=== PATIENT | male | born 1990 | race American Indian/Alaskan Native ===

== ENCOUNTER 2016-10-22 21:59 | Emergency (ER) | payer SELFPAY ==
[~2016-10-22] VITALS: Ht 177.8 cm; Wt 72.5 kg
[2016-10-22 22:01] VITALS: Ht 177.8 cm; Wt 72.5 kg
[2016-10-22] MEDS ORDERED: ACETAMINOPHEN 500 MG TAB PO STA (22:18)
--- NOTE | 2016-10-22 22:18 | ERD ---
ER Documentation Chief Complaint Date/Time DATE: 10/22/16 TIME: 22:16 Chief Complaint headache x 3 days HPI 26-year-old male presents to emergency department for complaints of headache for 3 days. Described the pain as throbbing pain, 4/10 scale, not better or worse with anything. Patient did not have any head injury. Patient is very worried and wants to make sure there is nothing emergent, patient is requesting for CT scan of the brain. Patient did not have any vomiting. Patient did not have any blurry vision. Patient did not have any altered level consciousness. Patient does not have any fever or chills. Patient did not take any medications for pain. ROS All systems reviewed and are negative except as per history of present illness. Medications Home Meds Reported Medications [none] Unknown Strength No Conflict Check 10/22/16 Allergies Allergies: Coded Allergies: No Known Allergy (Unverified , 10/22/16) PMhx/Soc Medical and Surgical Hx: pt denies Medical Hx, pt denies Surgical Hx Hx Alcohol Use: No Hx Substance Use: Yes (MARIJUANA) Hx Tobacco Use: Yes Smoking Status: Current every day smoker FmHx Family History: No coronary disease, No diabetes, No other Physical Exam Vitals Vital Signs Date Time Temp Pulse Resp B/P Pulse Ox O2 Delivery O2 Flow Rate FiO2 10/22/16 22:01 98.5 118 20 140/94 100 Physical Exam GENERAL: The patient is well developed and appropriate for usual state of health, in no apparent distress. CHEST: Clear to auscultation bilaterally. There are no rales, wheezes or rhonchi. HEART: Regular rate and rhythm. No murmurs, clicks, rubs or gallops. No S3 or S4. ABDOMEN: Soft, nontender and nondistended. Good bowel sounds. No rebound or guarding. No gross peritonitis. No gross organomegaly or masses. No Polk sign or McBurney point tenderness. BACK: No midline or flank tenderness. EXTREMITIES: Equal pulses bilaterally. There is no peripheral clubbing, cyanosis or edema. No focal swelling or erythema. Full range of motion. Grossly neurovascularly intact. NEURO: Alert and oriented. Cranial nerves 2-12 intact. Motor strength in all 4 extremities with 5/5 strength. Sensation grossly intact. Normal speech and gait. Negative Romberg sign. Negative pronator drift. SKIN: There is no apparent rash or petechia. The skin is warm and dry. HEMATOLOGIC AND LYMPHATIC: There is no evidence of excessive bruising or lymphedema. No gross cervical, axillary, or inguinal lymphadenopathy. Results 24 hrs Current Medications Medications (Trade) Dose Ordered Sig/Virgen Route PRN Reason Start Time Stop Time Status Last Admin Dose Admin Acetaminophen (Tylenol Tab) 500 mg ONCE STAT PO 10/22/16 22:18 10/22/16 22:19 DC Procedures/MDM Medical Decision Making: Patient's headache most likely consistent with tension headache, possibly migraine headache. There is low suspicion for neurological emergencies at this time since patients neurologic exam is normal. Patient did not have any altered level consciousness, vomiting, changes in balance or memory and did not have any head injury. CT scan of the brain was not indicated but patient was insisting on having it, patient was called for CT scan, but patient eloped prior to medicating and prior to having the CT scan. Patient was stable upon admission evaluation. Departure Diagnosis: Primary Impression: Headache Headache type: unspecified Headache chronicity pattern: acute headache Intractability: not intractable Qualified Code: R51 - Acute nonintractable headache, unspecified headache type Condition: Stable CLAUDY THOMAS NP Oct 22, 2016 22:18
== END 2016-10-22 23:05 | disposition left against medical advice (07) ==
LOC: FTE 21:59 → E/R 23:05
DX: R51 Headache (principal); F17.210 Nicotine dependence, cigarettes, uncomplicated
CPT/HCPCS: 99282